=== PATIENT | female | born 1975 | race Caucasian/White ===

== ENCOUNTER 2021-03-15 07:36 | Day surgery (SDC) | payer BC ==
[2021-03-12 09:56] VITALS: BMI 40.6
[2021-03-15] MEDS ORDERED: PROPOFOL 20 ML ONE ×2 (09:43→10:57)
[2021-03-15] MEDS ORDERED: MIDAZOLAM HCL 2 MG/2 ML SINGLE DOSE VIAL ONE (09:43)
[2021-03-15] MEDS ORDERED: ONDANSETRON 4 MG/2 ML VIAL IVPUSH PRN (09:47)
[2021-03-15] MEDS ORDERED: oxyCODONE HCL 5 MG TABLET PO PRN (09:47)
[2021-03-15] MEDS ORDERED: LACTATED RINGERS SOLUTION 1,000 ML IV SCH (10:00)
[2021-03-15] MEDS ORDERED: DEXAMETHASONE SOD PHOSPHATE 4 MG/1 ML VIAL ONE (10:21)
[2021-03-15] MEDS ORDERED: ceFAZolin SODIUM 1 GM VIAL ONE (10:21)
[2021-03-15] MEDS ORDERED: ONDANSETRON 4 MG/2 ML VIAL ONE ×2 (10:21→12:21)
[2021-03-15] MEDS ORDERED: BUPIVACAINE HCL/PF 2.5 MG/ML - 30 ML VIAL IJ ONE (11:26)
[2021-03-15] MEDS ORDERED: BUPIVACAINE HCL/PF 0.25% (2.5MG/ML) 10 ML VIAL IJ ONE (11:45)
[2021-03-15] MEDS ORDERED: MEPERIDINE HCL 25 MG/ML VIAL IVPUSH ONE (12:02)
[2021-03-15 12:54] VITALS: TEMP 97.8
[2021-03-15 13:49] VITALS: BP 140/80; PULSE 70
== END 2021-03-15 13:45 | disposition home or self-care (01) ==
LOC: FASU 07:36
PROVIDERS: ATTEND Orthopaedic Surgery
PROC: 0QSN04Z Reposition Right Metatarsal with Internal Fixation Device, Open Approach (ICD-10-PCS; principal; 2021-03-15 10:42)
DX: S92.351A Displaced fracture of fifth metatarsal bone, right foot, initial encounter for closed fracture (principal); X58.XXXA Exposure to other specified factors, initial encounter; Y93.9 Activity, unspecified; Y92.9 Unspecified place or not applicable
CPT/HCPCS: 28485; C1713; 73630-TC-RT-FY; 84703; 94760